=== PATIENT | female | born 1960 | race Caucasian/White ===

== ENCOUNTER → 2020-06-07 10:19 | Outpatient (REF) | payer OTHER, SELFPAY ==
--- NOTE | 2020-06-07 10:30 | CA_ITS ---
Transthoracic Echocardiogram Patient (Last, First, Middle): Veronique Alfonso, Gender: Female Date of : 1960 Age: 59 Procedure Date: 06/07/2020 Procedure Type: Transthoracic Echocardiogram Location: OP Height: 154.94 cm Weight: 79.83 kg BSA: 1.79 m2 Heart Rate: bpm BP: 158 / 90 mmHg Comber Fixer: ZION Mueller MD: Neelam Thornton NP-Susy Nutritional Health Coach: Theo Cope MD Symptoms: I42.9 CARDIOMYOPATHY Study Quality: Good ECG Rhythm: Sinus Conclusions: - 1. Mildly reduced LV systolic function with impaired relaxation filling pattern 2. Mild mitral regurgitation 3. Normal RV systolic pressure 4. No pericardial effusion Findings Left Ventricle Normal left ventricular cavity size. There is normal left ventricular wall thickness. The left ventricular systolic function is mildly decreased. The visually estimated ejection fraction is between 45-50%. Spectral Doppler is indicative of an impaired relaxation filling pattern. E/E prime ratio is between 8 and 15 consistent with indeterminate filling pressures. Right Ventricle Normal right ventricular cavity size and systolic function. Atria The left atrium is likely dilated. There is no evidence of interatrial shunt. The right atrium is normal in size. Aortic Valve Normal aortic valve structure and function. There is no aortic valve stenosis. There is no aortic valve regurgitation. Mitral Valve There is mild anterior and posterior mitral leaflet thickening. There is mild mitral valve regurgitation. There is no mitral valve stenosis. Pulmonic Valve The pulmonic valve was not well visualized. Tricuspid Valve Normal tricuspid valve structure. There is trace tricuspid valve regurgitation. The right ventricular systolic pressure is normal. The right ventricular systolic pressure is 26 mmHg. Normal right atrial pressure. There is no evidence of pulmonary hypertension. Great Vessels All visible segments of the aorta are normal in size. The pulmonary artery was not well visualized. Venous The inferior vena cava is normal in size and collapses greater than 50% with inspiration. Pericardium/Pleural There is no evidence of pericardial effusion. Prior Study Comparison No significant change compared to prior study dated: 05/11/2019. Measurements 2D Linear Measurements RVIDd: 2.83 RVIDd Index: 1.58 IVSd: 1.01 0.6-0.9/0.6-1.0 cm LVIDd: 5.66 3.9-5.3/4.2-5.9 cm LVIDd Index: 3.16 2.4-3.2/2.2-3.1 cm/m2 LVIDs: 4.36 2.0-3.6 cm LVPWd: 1.25 0.7-1.1 cm Ao Root: 2.90 2.1-3.5 cm LA Diam: 4.10 2.7-3.8/3.0-4.0 cm LAIDs Index: 2.29 1.5-2.3 cm/m2 LV Mass: 328.09 67-162/88-224 g LV Mass Index: 183.29 43-95/49-115 g/m2 LVOT Diam: 2.10 3.0+(-)1.3 cm 2D Systolic Function EF 4C: 37.90 >55% EF 2C: 51.30 >55% EF BiP: 45.40 >55% Mitral Valve MV Pk E: 0.58 MV PK A: 0.84 MV Decel Time: 160.00 E/A: 0.70 E'Lateral: 6.64 E'Medial: 4.46 E/E' Med: 12.90 E/E' Lat: 8.70 MR Vol - PW Dopp: 31.20 MR VTI: 1.95 MR ERO: 16.00 MR Alias Juan R: 0.36 MR RAD: 0.60 Aortic Valve AoV Pk Juan R: 1.03 AoV Mn Juan R: 0.84 AoV VTI: 0.20 AoV Pk Grad: 4.00 Aov Mn Grad: 3.00 RAZ Cont.VTI: 2.77 LVOT LVOT Pk Juan R: 0.81 LVOT Mn Juan R: 0.56 LVOT VTI: 0.16 LVOT Pk Grad: 3.00 LVOT Mn Grad: 1.00 LVOT Diam: 2.10 LVOT Area: 3.46 Diastolic Function MV Pk E: 0.58 MV Pk A: 0.84 E/A: 0.70 E'Medial: 4.46 E/E' Med: 12.90 E' Laterial: 6.64 E/E' Lat: 8.70 Tricuspid Valve TR Pk Juan R: 2.38 TR Pk Grad: 23.00 RA Press: 3.00 RVSP: 26.00 Great Vessels Aorta Ao Root-2D: 2.90 2.0-3.7 cm Ao Asc: 3.50 2.1-3.4 cm Ao Arch: 2.80 Updated in Other Vendor System with Status of Final Theo Cope MD electronically signed on 06/07/2020 2:30:31 PM with status of Final
== END ==
LOC: HO.CARD 10:19
PROVIDERS: Visit Provider Nurse Practitioner Family
DX: I42.9 Cardiomyopathy, unspecified (principal)
CPT/HCPCS: 93306

== ENCOUNTER → 2020-06-26 12:23 | Outpatient (BNVA) | payer OTHER, SELFPAY | PROVIDERS: Visit Provider Internal Medicine Cardiovascular Disease | DX: I42.8 Other cardiomyopathies (principal); I11.0 Hypertensive heart disease with heart failure; I50.22 Chronic systolic (congestive) heart failure; Z79.899 Other long term (current) drug therapy | CPT/HCPCS: 93005; 99212 ==

== ENCOUNTER → 2021-05-14 15:07 | Outpatient (BNVA) | payer OTHER, SELFPAY | PROVIDERS: Visit Provider Internal Medicine Cardiovascular Disease | DX: I42.8 Other cardiomyopathies (principal); I11.0 Hypertensive heart disease with heart failure; I50.22 Chronic systolic (congestive) heart failure | CPT/HCPCS: 93005; 99212 ==

== ENCOUNTER 2021-06-05 09:56 | Outpatient (REF) | payer OTHER, SELFPAY ==
[2021-06-05 11:35] LABS: Alanine Aminotransferase 25 U/L (0-31); Albumin Level 4.2 g/dL (3.5-5.0); Alkaline Phosphatase 61 U/L (39-117); Anion Gap 12 (12-20); Aspartate Amino Transferase 21 U/L (5-31); Bilirubin Total 0.4 mg/dL (0.0-1.0); Blood Urea Nitrogen 12 mg/dL (9-16); Carbon Dioxide 29 mmol/L (22-29); Chloride 106 mmol/L (96-108); Cholesterol 186 mg/dL; Estimated Glomerular Filt Rate > 60; Glucose Fasting 152 mg/dL (60-99); HDL Cholesterol 37 mg/dL; LDL Cholesterol Calculated 121 mg/dl; Potassium 4.6 mmol/L (3.3-5.1); Sodium 142 mmol/L (135-145); Total Protein 6.8 g/dL (6.5-8.0); Triglycerides 140 mg/dL
[2021-06-05 11:57] LABS: TSH reflex Free T4 7.39 uIU/mL (0.32-4.0)
[2021-06-05 14:20] LABS: Free T4 (Free Thyroxine) 0.83 ng/dL (0.71-1.85)
== END 2021-06-05 09:57 | disposition home or self-care (01) ==
LOC: HO.LAB 09:56
PROVIDERS: Visit Provider Nurse Practitioner Family
DX: I42.8 Other cardiomyopathies (principal); I10 Essential (primary) hypertension
CPT/HCPCS: 36415; 80053; 80061; 84439; 84443

== ENCOUNTER → 2022-05-20 13:48 | Outpatient (BNVA) | payer OTHER, SELFPAY | PROVIDERS: Visit Provider Internal Medicine Cardiovascular Disease | DX: I42.8 Other cardiomyopathies (principal); I10 Essential (primary) hypertension | CPT/HCPCS: 36415; 80048; 93005; 99212 ==

== ENCOUNTER 2022-05-20 15:02 | Outpatient (REF) | payer OTHER, SELFPAY ==
[2022-05-20 15:57] LABS: Anion Gap 15 (12-20); Blood Urea Nitrogen 16 mg/dL (9-16); Calcium 9.1 mg/dL (8.4-10.2); Carbon Dioxide 28 mmol/L (22-29); Chloride 104 mmol/L (96-108); Estimated Glomerular Filt Rate 59; Glucose Random 172 mg/dL (60-115); Potassium 5.1 mmol/L (3.3-5.1); Sodium 142 mmol/L (135-145)
== END 2022-05-20 15:03 | disposition home or self-care (01) ==
LOC: HO.LAB 15:02
PROVIDERS: Visit Provider Internal Medicine Cardiovascular Disease
DX: Z13.89 Encounter for screening for other disorder (principal)
CPT/HCPCS: 36415; 80048

== ENCOUNTER → 2022-06-06 09:07 | Outpatient (REF) | payer OTHER, SELFPAY ==
--- NOTE | 2022-06-06 09:09 | CA_ITS ---
Transthoracic Echocardiogram Patient (Last, First, Middle): Veronique Alfonso, Gender: Female Date of : 1960 Age: 61 Procedure Date: 06/06/2022 Procedure Type: Transthoracic Echocardiogram Location: OP Height: 157.48 cm Weight: 76.66 kg BSA: 1.78 m2 Heart Rate: 59 bpm BP: 190 / 100 mmHg Head Resident: KENIA Referring MD: Theo Cope MD Chief Fundraising Officer: Theo Cope MD Symptoms: I42.8 - Other cardiomyopathies Study Quality: Adequate/Contrast ECG Rhythm: Bradycardia Conclusions: - 1. Moderately reduced LV systolic function with LVEF of 35-40% 2. Normal cardiac valvular Doppler 3. Normal RV systolic pressure 4. No gross pericardial effusion Findings Procedure Information Contrast agent, definity, is being given per protocol without apparent complications. Left Ventricle Mildly increased left ventricular cavity size. There is normal left ventricular wall thickness. The left ventricular systolic function is moderately decreased. The visually estimated ejection fraction is between 35 40%. There is moderate global hypokinesis. Spectral Doppler is indicative of an impaired relaxation filling pattern. E/E prime ratio is between 8 and 15 consistent with indeterminate filling pressures. Right Ventricle Normal right ventricular cavity size and systolic function. Atria The left atrium is likely dilated. There is no evidence of interatrial shunt. The right atrium is normal in size. Aortic Valve Normal aortic valve structure and function. There is no aortic valve stenosis. There is no aortic valve regurgitation. Mitral Valve Normal mitral valve structure and function. There is mild mitral valve regurgitation. There is no mitral valve stenosis. Pulmonic Valve The pulmonic valve is likely normal. There is mild pulmonic valve regurgitation. Tricuspid Valve Normal tricuspid valve structure. There is trace tricuspid valve regurgitation. The right ventricular systolic pressure is normal. The right ventricular systolic pressure is 16 mmHg. Normal right atrial pressure. There is no evidence of pulmonary hypertension. Great Vessels All visible segments of the aorta are normal in size. The pulmonary artery was not well visualized. Venous The inferior vena cava is normal in size and collapses greater than 50% with inspiration. Pericardium/Pleural There is no evidence of pericardial effusion. Prior Study Comparison Changes noted compared to prior study dated: 06/07/2020. LV systolic function is reduced Measurements 2D Linear Measurements IVSd: 0.96 0.6-0.9/0.6-1.0 cm LVIDd: 5.48 3.9-5.3/4.2-5.9 cm LVIDd Index: 3.08 2.4-3.2/2.2-3.1 cm/m2 LVIDs: 3.95 2.0-3.6 cm LVPWd: 1.13 0.7-1.1 cm LA Diam: 3.50 2.7-3.8/3.0-4.0 cm LAIDs Index: 1.97 1.5-2.3 cm/m2 LV Mass: 279.11 67-162/88-224 g LV Mass Index: 156.80 43-95/49-115 g/m2 LVOT Diam: 1.90 3.0+(-)1.3 cm 2D Systolic Function EF 4C: 38.50 >55% EF 2C: 35.50 >55% EF BiP: 37.90 >55% Mitral Valve MV Pk E: 0.48 MV PK A: 0.63 MV Decel Time: 256.00 E/A: 0.80 E'Lateral: 5.64 E'Medial: 4.32 E/E' Med: 11.20 E/E' Lat: 8.60 PHT: 75.00 MVA PHT: 2.93 Decel Freestone: 1.89 Aortic Valve AoV Pk Juan R: 1.12 AoV Mn Juan R: 0.82 AoV VTI: 0.26 AoV Pk Grad: 5.00 Aov Mn Grad: 3.00 RAZ Cont.VTI: 1.96 LVOT LVOT Pk Juan R: 0.84 LVOT Mn Juan R: 0.57 LVOT VTI: 0.18 LVOT Pk Grad: 3.00 LVOT Mn Grad: 1.00 LVOT Diam: 1.90 LVOT Area: 2.84 Diastolic Function MV Pk E: 0.48 MV Pk A: 0.63 E/A: 0.80 E'Medial: 4.32 E/E' Med: 11.20 E' Laterial: 5.64 E/E' Lat: 8.60 Right Ventricle TAPSE (mm): 15.10 TVS' Juan R: 8.45 Tricuspid Valve TR Pk Juan R: 1.81 TR Pk Grad: 13.00 RA Press: 3.00 RVSP: 16.00 Great Vessels Aorta Sinus of Valsalva: 3.30 2.0-3.[address] [place]: 2.75 1.7-3.4 cm Ao Asc: 3.60 2.1-3.4 cm Pulmonary Valve PV Pk Juan R: 0.98 Peak PV Grad: 4.00 Updated in Other Vendor System with Status of Final Theo Cope MD electronically signed on 06/06/2022 1:51:39 PM with status of Final
== END ==
LOC: HO.CARD 09:07
PROVIDERS: Visit Provider Internal Medicine Cardiovascular Disease
DX: I42.8 Other cardiomyopathies (principal)
CPT/HCPCS: 93306; Q9957

== ENCOUNTER 2022-09-13 10:04 | Emergency (ER) | payer OTHER, SELFPAY ==
--- NOTE | ~2022-09-13 | XR_ITS ---
EXAMINATION: XR THORACIC SPINE CLINICAL INFORMATION: Back pain. COMPARISON: None TECHNIQUE: 3 views of the thoracic spine were obtained. FINDINGS: There is no fracture or bone destruction seen and the vertebral alignment is normal. There is no disc space narrowing. There is no abnormality of the paraspinal soft tissues. XR/XR thoracic spine 3V IMPRESSION: Unremarkable thoracic spine.
--- NOTE | ~2022-09-13 | CT_ITS ---
EXAMINATION: CT ABDOMEN AND PELVIS WITHOUT CONTRAST CLINICAL INFORMATION: Back pain. Question renal colic. COMPARISON: None TECHNIQUE: Multidetector volumetric imaging was performed from the superior aspect of the liver through the pubic symphysis. Sagittal and coronal reformatted images were obtained on the technologist's workstation. This CT examination was performed using dose optimization techniques as appropriate, variously including the following: *Automated exposure control *Adjustment of mA and/or kV according to patient size (this includes techniques or standardized protocols for targeted exams where dose is matched to indication/reason for exam; i.e. extremities or head) *Use of iterative reconstruction technique DLP: 638 mGy-cm FINDINGS: LUNG BASES: The visualized lung bases are unremarkable. LIVER, GALLBLADDER, AND BILIARY TREE: Enlarged fatty liver. No focal hepatic lesion or biliary ductal dilatation is present. The gallbladder is unremarkable with no evidence of radiopaque gallstones, gallbladder wall thickening, or obvious pericholecystic inflammatory changes. PANCREAS: Unremarkable. SPLEEN: Unremarkable. ADRENAL GLANDS: Unremarkable. KIDNEYS AND URETERS: 4 x 7 mm left renal stone. Tiny 1 mm right lower pole renal stone. No hydronephrosis. BLADDER: Unremarkable. GASTROINTESTINAL TRACT: The small and large bowel are unremarkable. The appendix is unremarkable. ABDOMINAL WALL: No significant hernia is appreciated. LYMPH NODES: Normal. VASCULAR: Unremarkable. PELVIC VISCERA: Small partially calcified partially fatty left ovarian lesion probably representing a dermoid. This measures 1 x 2 cm. The uterus and right ovary are unremarkable. OSSEOUS STRUCTURES: Unremarkable. CT/CT abdomen pelvis wo IV con IMPRESSION: 4 x 7 mm left renal stone. Tiny 1 mm right renal stone. No hydronephrosis. Probable small left ovarian dermoid. Fatty liver. Fleischner guidelines were followed.
--- NOTE | ~2022-09-13 | XR_ITS ---
EXAMINATION: XR LUMBOSACRAL SPINE CLINICAL INFORMATION: Back pain. COMPARISON: None TECHNIQUE: Three views of the lumbosacral spine. FINDINGS: The vertebral bodies and posterior elements are normal. The disc spaces are preserved and the vertebral alignment is normal. Mild bilateral facet arthropathy seen at L4-L5 and L5-S1. The paraspinal soft tissues are normal. A 0.7 cm ovoid radiopaque density overlies the left midabdomen. Radiopaque densities overlying the pelvis likely represent phleboliths. XR/XR lumbar spine 2-3V IMPRESSION: 1. No acute lumbar spine abnormality. L4-L5 and L5-S1 mild bilateral facet arthropathy. 2. 0.7 cm ovoid radiopaque density overlying the left midabdomen is nonspecific. This could represent a renal calculus.
[2022-09-13 10:28] VITALS: BP 168/93; PULSE 66; RESP 20; TEMP 36.2; O2SAT 97; BMI 30.7
[2022-09-13 10:46] LABS: MANUAL DIFF FLAG NO
[2022-09-13 10:48] LABS: Basophils Absolute Auto 0.1 X10*3/uL (0.0-0.2); Basophils Percent Auto 1.1 % (0-2); Eosinophils Absolute Auto 0.2 X10*3/uL (0.0-0.4); Eosinophils Percent Auto 2.7 % (0-4); Hematocrit 44.4 % (37.0-47.0); Hemoglobin 14.4 g/dl (12.0-16.0); Imm Gran Abs Auto 0.03 X10*3/uL (0.00-0.03); Imm Gran Pct Auto 0.4 % (0.0-0.4); Lymphocytes Absolute Auto 3.2 X10*3/uL (1.2-4.9); Lymphocytes Percent Auto 42.9 % (20-40); Mean Corpuscular HGB Conc 32.4 g/dl (31.0-35.0); Mean Corpuscular Hemoglobin 29.7 pg (27.0-33.0); Mean Corpuscular Volume 91.5 fL (80.0-98.0); Mean Platelet Volume 11.8 fL (9.4-12.3); Monocytes Absolute Auto 0.5 X10*3/uL (0.1-1.2); Monocytes Percent Auto 6.2 % (2-11); Neutrophils Absolute Auto 3.5 x10*3/uL (2.0-8.3); Neutrophils Percent Auto 46.7 % (45-73); Platelet Count 219 X10*3/uL (160-400); Red Blood Count 4.85 X10*6/uL (4.20-5.50); White Blood Count 7.5 X10*3/uL (4.8-10.8)
[2022-09-13 11:01] LABS: Anion Gap 16 (12-20); Blood Urea Nitrogen 14 mg/dL (9-16); Calcium 9.3 mg/dL (8.4-10.2); Carbon Dioxide 24 mmol/L (22-29); Chloride 107 mmol/L (96-108); Creatinine Clr Calc Pharmacy 68.9; Estimated Glomerular Filt Rate > 60; Glucose Random 134 mg/dL (60-115); Potassium 5.3 mmol/L (3.3-5.1); Sodium 142 mmol/L (135-145)
--- NOTE | 2022-09-13 11:22 | ED.BACK ---
HPI - Back Pain/Injury General Chief Complaint: Back Pain/Injury Stated Complaint: HBP/Back pain Time Seen by Provider: 09/13/22 11:02 Source: patient Mode of arrival: ambulatory Limitations: no limitations History of Present Illness HPI Narrative: 61-year-old female with a history of congestive heart failure, hypertension who presents to the emergency room with complaints of mid back pain for the last 4-5 days with no injury or trauma. No radiation of pain. No numbness, tingling, weakness in the lower legs. No numbness in the groin. No fevers or chills. No urinary symptoms. Patient taking Tylenol home with continued symptoms Patient concerned her blood pressure is elevated today. She did not take any of her morning blood pressure medication Related Data Previous Rx's Medication Instructions Recorded carvedilol 25 mg tablet 25 mg PO BID #60 tabs 05/13/22 blood pressure test kit-large (BPM #1 ea 05/23/22 2 Advanced BP Monitor kit) sacubitril 97 mg-valsartan 103 mg 1 tab PO BID 90 days #180 tabs 07/23/22 tablet cefuroxime axetil 500 mg tablet 500 mg PO BID #14 tabs 09/13/22 cyclobenzaprine 10 mg tablet 10 mg PO Q8H PRN muscle spasm #14 09/13/22 tabs lidocaine 5 % topical patch 1 patch topical DAILY #15 ea 09/13/22 (Lidoderm) naproxen 500 mg tablet 500 mg PO BID PRN pain #30 tabs 09/13/22 Allergies Allergy/AdvReac Type Severity Reaction Status Date / Time No Known Allergies Allergy Verified 06/26/20 12:35 [No Known Allergies*] Review of Systems Review of Systems: Yes all other systems are reviewed and are negative Constitutional: Constitutional: Reports no additional constitutional complaints, Denies body ache(s), Denies chills, Denies fever(s), Denies headache(s) and Denies weakness Eyes: Eyes: Reports no additional eye complaints and Denies change in vision ENT: Reports system reviewed and no additional complaints, except as documented, Denies dizziness, Denies headache(s), Denies nasal congestion, Denies nasal discharge and Denies neck pain Cardiovascular: Cardiovascular: Reports no additional cardiovascular complaints, Denies chest pain, Denies leg edema and Denies dyspnea Respiratory: Respiratory: Reports no additional respiratory complaints, Denies cough and Denies dyspnea Gastrointestinal: Gastrointestinal: Reports no additional gastrointestinal complaints, Denies abdominal pain, Denies diarrhea, Denies nausea and Denies vomiting Genitourinary: Genitourinary: Reports no additional female genitourinary complaints and Denies urinary incontinence Musculoskeletal: Musculoskeletal: Reports no additional musculoskeletal complaints, Reports back pain, Denies arthralgias, Denies joint swelling, Denies neck pain, Denies numbness and Denies tingling Integumentary/Breasts: Skin/Breast: Reports system reviewed and no additional complaints, except as docu and Denies rash Neurologic: Reports system reviewed and no additional complaints, except as documented, Denies Abnormal speech present, Denies dizziness, Denies headache(s), Denies numbness, Denies tingling and Denies weakness PMFSH Past Medical History Attestation statement: The following information was validated with the patient. Source: old records reviewed and nursing notes reviewed Medical History Chronic HFrEF (heart failure with reduced ejection fraction) HTN (hypertension) Nonischemic cardiomyopathy NSVT (nonsustained ventricular tachycardia) Family History Family History Father No problems noted. Mother No problems noted. Social History Social History Alcohol intake: never Smoked in Last 30 Days: No Use of substances other than those prescribed or required for medical reasons: No Advance Directives: No Advance Directives Information Provided: Yes Patient : No Physical Exam Vital Signs: Vital Signs: Last Vital Signs Temp 98.2 F 09/13/22 15:33 Pulse 80 09/13/22 15:33 Resp 16 09/13/22 15:33 BP 158/80 H 09/13/22 15:33 Pulse Ox 98 09/13/22 15:33 O2 Del Method 09/13/22 15:33 BMI result Body Mass Index 30.7 Const: General: cooperative, healthy appearing, comfortable and no acute distress Orientation/consciousness: patient oriented x3 Limitations: no limitations HEENT: Head: Yes normal to inspection Ears: hearing grossly normal bilaterally General nose exam: Normal external nose present Face and sinus: Yes normal facial exam Mouth: Normal oral and palatal mucosa present Throat: Yes posterior oropharynx normal Eyes: General: appearance normal, both eyes and all related structures Pupils: Equal, round and reactive pupils present Neck: Neck: Yes normal visual inspection Chest: Chest palpation & inspection: normal inspection of the chest Resp: Effort & Inspection: normal respiratory effort Auscultation: clear to auscultation bilaterally Cardio: Rate: regular rate Rhythm: regular rhythm Peripheral pulses: Peripheral pulses 2+ throughout GI: Inspection: Yes normal to inspection Palpation (GI): Soft to palpation and nontender Auscultation: normal bowel sounds : General: Yes no CVA tenderness Back/Spine/Pelvis: Other: There is tenderness over the thoracic spine and upper lumbar spine with no step-offs or deformities. Back: no CVA tenderness Thoracic/Lumbar Spine: thoracic and lumbar spine normal to inspection Skin: General skin exam: no rashes or lesions noted Neuro: General: patient oriented x3, moves all extremities, no focal motor deficits and normal sensation to monofilament Cranial nerves: Yes CN's II-XII intact bilaterally, Yes Equal, round and reactive pupils present, Yes Bilaterally intact EOM present, Yes Nystagmus not present, Yes Normal facial strength present and Yes Midline tongue present Cognition (Neuro): normal cognition Speech: No Abnormal speech present Gait exam (Neuro): Normal gait present Motor exam (neuro): 5/5 motor strength present throughout Sensory Exam: Normal double simultaneous stimulation for sensation Extrem: General: Yes normal to inspection Course Course Course Narrative: UA is shows moderate leuk with ?radiopaque fb seen on x-rays.. Will obtain CT to eval for renal colic Reevaluation(s) Reevaluation #1: [id number] is consistent with UTI. Low concern for pyelonephritis. Patient overall nontoxic appearing CT shows kidney stones within the kidney but no obstructive kidney stones. X-rays show arthritic changes. Back pain is likely muscular. Patient will be discharged home with antibiotics, NSAID, muscle relaxant. Recommend follow-up outpatient with primary care doctor. Reviewed worrisome signs and symptoms of when to return to the emergency room. Comfortable plan for discharge home. Medications Administered Discontinued Medications Generic Name Dose Route Start Last Admin Trade Name Freq PRN Reason Stop Dose Admin Ketorolac Tromethamine 30 mg 09/13/22 11:22 09/13/22 11:35 Ketorolac Tromethamine 30 Mg/Ml Vial IM 09/13/22 11:23 30 mg ONCE ONE Administration Medical Decision Making Medical Decision Making [facility] Narrative: 61-year-old female here with atraumatic mid back pain for the last 4-5 days with no other associated symptoms. Patient tenderness over the spine with no step-offs or deformities. No CVA tenderness. Abdomen soft nontender. Lungs are clear. Will obtain labs, UA, x-ray Differential Diagnosis Differential Diagnoses: The differential diagnosis associated with the presentation includes Pyelonephritis, renal colic, UTI Low concern for aortic dissection, epidural abscess, cord compression/cauda equina Lab Data [facility] Lab Attestation statement: I reviewed the patient's lab results. 09/13/22 10:42 09/13/22 10:42 Labs: Lab Results 09/13/22 09/13/22 09/13/22 Range/Units 10:42 10:42 11:31 WBC 7.5 (4.8-10.8) X10*3/uL RBC 4.85 (4.20-5.50) X10*6/uL Hgb 14.4 (12.0-16.0) g/dl Hct 44.4 (37.0-47.0) % MCV 91.5 (80.0-98.0) fL MCH 29.7 (27.0-33.0) pg MCHC 32.4 (31.0-35.0) g/dl RDW 13.0 (11.0-16.0) % Plt Count 219 (160-400) X10*3/uL MPV 11.8 (9.4-12.3) fL Immature Gran % (Auto) 0.4 (0.0-0.4) % Neut % (Auto) 46.7 (45-73) % Lymph % (Auto) 42.9 H (20-40) % [place] % (Auto) 6.2 (2-11) % Eos % (Auto) 2.7 (0-4) % Baso % (Auto) 1.1 (0-2) % Lymph # (Auto) 3.2 (1.2-4.9) X10*3/uL [place] # (Auto) 0.5 (0.1-1.2) X10*3/uL Eos # (Auto) 0.2 (0.0-0.4) X10*3/uL Baso # (Auto) 0.1 (0.0-0.2) X10*3/uL Abs Immat Gran (auto) 0.03 (0.00-0.03) X10*3/uL Absolute Neuts (auto) 3.5 (2.0-8.3) x10*3/uL Absolute Nucleated RBC 0.000 (0.0-0.012) X10*3/uL Nucleated RBC % (auto) 0.0 (0.0-0.2) /100WBC Sodium 142 (135-145) mmol/L Potassium 5.3 H (3.3-5.1) mmol/L Chloride 107 (96-108) mmol/L Carbon Dioxide 24 (22-29) mmol/L Anion Gap 16 (12-20) BUN 14 (9-16) mg/dL Creatinine 0.84 (0.5-1.4) mg/dL Estim Creat Clear Calc 68.9 Estimated GFR > 60 Random Glucose 134 H (60-115) mg/dL Calcium 9.3 (8.4-10.2) mg/dL Total Bilirubin 0.6 (0.0-1.0) mg/dL Direct Bilirubin < 0.2 (0.0-0.5) mg/dL AST 21 (5-31) U/L ALT 21 (0-31) U/L Alkaline Phosphatase 65 (39-117) U/L Total Protein 7.3 (6.5-8.0) g/dL Albumin 4.3 (3.5-5.0) g/dL Urine Color Yellow Urine Appearance Cloudy Urine pH 5.5 (5.0-9.0) Ur Specific Thelma 1.025 (1.005-1.025) Urine Protein Trace (Neg-Trace) mg/dL Urine Glucose (UA) Negative (Negative) mg/dL Urine Ketones Negative (Negative) mg/dL Urine Blood Negative (Negative) Urine Nitrite Negative (Negative) Ur Leukocyte Esterase Moderate (2+) H (Negative) Urine RBC 0-2 (0-2) /HPF Urine WBC 21-50 H (0-5) /HPF Ur Squamous Epith Cells 6-10 (0-2) /HPF Urine Bacteria None Seen (None Seen) Hyaline Casts 0-2 (0-2) /LPF Independent Interpretation I performed an independent interpretation of an: Plain X-Ray and CT Scan Interpretation: I independently reviewed the x-rays and agree with radiologist's report I independently reviewed the CT scan and agree with radiologist's report Radiology Impression Discussion of test interpretation with radiology: I have reviewed the radiologist's reading. Radiologist Impression: FINDINGS: The vertebral bodies and posterior elements are normal. The disc spaces are preserved and the vertebral alignment is normal. Mild bilateral facet arthropathy seen at L4-L5 and L5-S1. The paraspinal soft tissues are normal. A 0.7 cm ovoid radiopaque density overlies the left midabdomen. Radiopaque densities overlying the pelvis likely represent phleboliths. XR/XR lumbar spine 2-3V IMPRESSION: 1.? No acute lumbar spine abnormality. L4-L5 and L5-S1 mild bilateral facet arthropathy. 2.? 0.7 cm ovoid radiopaque density overlying the left midabdomen is nonspecific. This could represent a renal calculus. FINDINGS: LUNG BASES: The visualized lung bases are unremarkable.? LIVER, GALLBLADDER, AND BILIARY TREE: Enlarged fatty liver. No focal hepatic lesion or biliary ductal dilatation is present. The gallbladder is unremarkable with no evidence of radiopaque gallstones, gallbladder wall thickening, or obvious pericholecystic inflammatory changes.? PANCREAS: Unremarkable.? SPLEEN: Unremarkable.? ADRENAL GLANDS: Unremarkable.? KIDNEYS AND URETERS: 4 x 7 mm left renal stone. Tiny 1 mm right lower pole renal stone. No hydronephrosis.? BLADDER: Unremarkable.? GASTROINTESTINAL TRACT: The small and large bowel are unremarkable. The appendix is unremarkable.? ABDOMINAL WALL: No significant hernia is appreciated.? LYMPH NODES: Normal. VASCULAR: Unremarkable. PELVIC VISCERA: Small partially calcified partially fatty left ovarian lesion probably representing a dermoid. This measures 1 x 2 cm. The uterus and right ovary are unremarkable. OSSEOUS STRUCTURES: Unremarkable.? CT/CT abdomen pelvis wo IV con IMPRESSION: 4 x 7 mm left renal stone. Tiny 1 mm right renal stone. No hydronephrosis. Probable small left ovarian dermoid. Fatty liver. ? Fleischner guidelines were followed. Discharge Plan Discharge Clinical Impression: Back pain, UTI (urinary tract infection) Patient Disposition: Home, Self-Care Instructions: Urinary Tract Infection in Women (ED), Acute Low Back Pain (ED), Back Pain (ED) Additional Instructions: Jones radiograf?a muestra artritis en jones [place]. Jones tomograf?a computarizada muestra varios c?lculos renales en el ri??n, krzysztof estos no deber?an estar causando jones dolor. Tienes ghazal infecci?n de orina. Creo que tu dolor de espalda es m?s muscular. Noroton los medicamentos seg?n lo prescrito. Regresar por empeoramiento de los s?ntomas. Prescriptions: New cefuroxime axetil 500 mg tablet 500 mg PO BID Qty: 14 0RF cyclobenzaprine 10 mg tablet 10 mg PO Q8H PRN (Reason: muscle spasm) Qty: 14 0RF naproxen 500 mg tablet 500 mg PO BID PRN (Reason: pain) Qty: 30 0RF lidocaine [Lidoderm] 5 % adhesive patch,medicated 1 patch topical DAILY Qty: 15 0RF Rx Instructions: leave on most painful area for up to 12 hrs No Action carvedilol 25 mg tablet 25 mg PO BID Qty: 60 5RF (DME) blood pressure test kit-large [BPM 2 Advanced BP Monitor] Kit See Rx Instructions .Route Qty: 1 0RF Rx Instructions: As directed sacubitril-valsartan 97-103 mg tablet 1 tab PO BID 90 Days Qty: 180 3RF Referrals: Physician,Unknown J [Primary Care Provider] - Interventions: ED Discharge Assessment Last Done: 09/13/22 16:22 Discharge Date/Time: 09/13/22 16:23 Print Language: Moldovan
[2022-09-13 11:29] VITALS: BP 146/69; PULSE 63; RESP 16; TEMP 36.8; O2SAT 95
[2022-09-13 11:32] LABS: Alanine Aminotransferase 21 U/L (0-31); Albumin Level 4.3 g/dL (3.5-5.0); Alkaline Phosphatase 65 U/L (39-117); Aspartate Amino Transferase 21 U/L (5-31); Bilirubin Direct < 0.2 mg/dL (0.0-0.5); Bilirubin Total 0.6 mg/dL (0.0-1.0); Total Protein 7.3 g/dL (6.5-8.0)
[2022-09-13] MEDS: Ketorolac Tromethamine 30 MG/ML VIAL IM (11:35)
[2022-09-13 11:44] LABS: Appearance Urine Cloudy; Color Urine Yellow; Glucose Urine UA Negative (Negative); Leukocyte Esterase Urine Moderate (2+) (Negative); Nitrite Urine Negative (Negative); PH 5.5 (5.0-9.0); Specific Gravity - Urine 1.025 (1.005-1.025); UMIC TRIGGER UACC YES; Urine Blood Negative (Negative); Urine Ketones Negative (Negative); Urine Protein Trace mg/dL (Neg-Trace)
[2022-09-13 11:52] LABS: Bacteria Urine None Seen (None Seen); Hyaline Casts Urine 0-2 /LPF (0-2); RBC Urine 0-2 /HPF (0-2); UACC Culture Trigger YES; WBC Urine 21-50 /HPF (0-5)
[2022-09-13 15:33] VITALS: BP 158/80; PULSE 80; RESP 16; TEMP 36.8; O2SAT 98
== END 2022-09-13 16:23 | disposition home or self-care (01) ==
PROVIDERS: Nurse Practitioner Family; Emergency Provider Emergency Medicine
DX: M54.6 Pain in thoracic spine (principal); N39.0 Urinary tract infection, site not specified; I11.0 Hypertensive heart disease with heart failure; I50.22 Chronic systolic (congestive) heart failure; Z79.899 Other long term (current) drug therapy
CPT/HCPCS: 36415; 72072; 72100; 74176; 80048; 80076; 81001; 85025; 87086; 96372; 99284; J1885

== ENCOUNTER 2023-07-29 10:44 | Outpatient (AMB) | payer OTHER, SELFPAY ==
[2023-07-29 10:45] VITALS: BP 166/104; PULSE 86; BMI 30.6
--- NOTE | 2023-07-29 10:45 | A.OFFVIS_ITS ---
Intake Vital Signs 07/29/23 10:45 Height 5 ft 2 in Weight 167 lb 8.821 oz BMI 30.6 BP 166/104 H Blood Pressure Location Lt brachial Position Sitting Pulse 86 Intake Visit Reasons: 1 yr f/up Intake Note: 1 year follow-up with ekg feeling good hasn't taken morning meds Hogshead Liner Required: Yes Hogshead Liner Name: Robert henriquez Allergies No Known Allergies [No Known Allergies*] Allergy (Verified 06/26/20 12:35) Medication List - Last Reconciled 07/29/23 by Theo Cope MD blood pressure test kit-large (BPM 2 Advanced BP Monitor kit) As directed carvedilol 25 mg PO BID 90 days sacubitril-valsartan 97-103 mg 1 tab PO BID 90 days HPI HPI Comments History of Present Illness Details Veronique comes after a longer gap that 1 year for follow-up. History was obtained with help of machine former. Echocardiogram done in May of 2022 at show moderate LV systolic dysfunction with LVEF of 35-40%. She is noted to have elevated blood pressure today. She says she did not take her morning med, she only takes Entresto at current time as she was rushing to the visit. However she says she has also been off Coreg for 8 months, not sure of the reason. We have to investigate this. Patient says blood pressure at home are in the 130s range. She has no heart failure symptoms. Denies any worsening shortness of breath, orthopnea, PND. She denies any palpitations, lightheadedness, syncope. No headaches. [facility] Medical History NSVT (nonsustained ventricular tachycardia) HTN (hypertension) Nonischemic cardiomyopathy Chronic HFrEF (heart failure with reduced ejection fraction) Family History Father No problems noted. Mother No problems noted. Social History Alcohol intake: never Review of Systems Const Denies chills, Denies fatigue, Denies fever(s), Denies frequent falls, Denies weakness, Denies weight gain and Denies weight loss ENT Denies dizziness Card Denies chest pain, Denies leg edema, Denies lightheadedness, Denies palpitations, Denies dyspnea, Denies dyspnea on exertion, Denies orthopnea and Denies other (loss of consciousness) Resp Denies cough, Denies dyspnea and Denies dyspnea on exertion GI Denies hematochezia and Denies change in stool character Musc Denies abnormal gait, Denies muscle weakness, Denies numbness, Denies radiating pain into limb and Denies tingling Neuro Denies abnormal gait, Denies dizziness, Denies frequent falls, Denies numbness, Denies tingling and Denies weakness Endo Denies fatigue and Denies palpitations Physical Exam Vital Signs: Last Vital Signs Pulse 86 07/29/23 10:45 BP 166/104 H 07/29/23 10:45 BMI result Body Mass Index 30.6 Const General: cooperative, healthy appearing, comfortable and no acute distress Orientation/consciousness: patient oriented x3 Neck Neck: Yes normal visual inspection and Yes no JVD Resp Effort & Inspection: normal respiratory effort Auscultation: clear to auscultation bilaterally, no crackles, no rales, no rhonchi and no wheezes Cardio Jugular venous distension: no JVD Rate: regular rate Rhythm: regular rhythm Heart sounds: S1 normal heart sound present, S2 normal heart sound present, no gallops, no murmurs and no rubs Peripheral pulses: Peripheral pulses 2+ throughout GI Inspection: Yes normal to inspection Neuro General: patient oriented x3 Extrem General: Yes normal to inspection, No no pedal edema and No calf tenderness Office Procedures EKG Details: EKG shows normal sinus rhythm at 86 beats per minute with atrial enlargement with left ventricular hypertrophy [id number], Complete Assessment & Plan Assessment & Plan (1) Nonischemic cardiomyopathy: Comment: Myocardial perfusion imaging within normal limits. LV ejection fraction improved to 45 to 50%, last echocardiogram April 2020 Code(s): I42.8 - Other cardiomyopathies Plan: Nonischemic cardiomyopathy with moderate LV systolic dysfunction by echocardiogram in May of 2022. She has not had a follow-up for long time for unclear reasons. She also currently of Coreg for unclear reasons. Importance of neurohormonal modulation was discussed with help of machine former. Her blood pressure is currently not controlled as she has not taken her morning med as well as not on Coreg. Will resume Coreg 25 mg b.i.d. and Entresto at current dose. Avoidance of cardiotoxic agents was discussed. No clinical signs of congestive heart failure. Follow-up echocardiogram near future. We reviewed the records and seems like the prescription was sent in March. Unclear wiped patient did not receive it. Will investigate with the pharmacy. Advised to monitor blood pressure at home maintain a log. Low-salt diet was discussed signs or symptoms of heart failure were discussed Follow up in the office in 4 weeks time after echocardiogram. Thank you for allowing me to partake in her care Orders: Orders CA echo transthoracic complete Today I42.8 - Other cardiomyopathies Medications: New carvedilol (Coreg) must administer with a meal/food 25 mg PO Q12H 180 tabs 3RF I42.8 - Other cardiomyopathies Refilled sacubitril-valsartan 97-103 mg 1 tab PO BID 180 tabs 3RF 90 days I42.8 - Other cardiomyopathies Discontinued carvedilol Discontinued Reason: Patient no longer taking 25 mg PO BID 90 days 180 tabs 3RF Coding Level of Care Code Est Pt Level 4 (72479) Diagnoses Nonischemic cardiomyopathy I42.8 CPT Codes EKG - CPT: 04033-[id number], Complete ([id number])
== END 2023-07-29 11:17 | disposition home or self-care (01) ==
PROVIDERS: Visit Provider Internal Medicine Cardiovascular Disease
DX: I42.8 Other cardiomyopathies (principal)
CPT/HCPCS: 93010; 99214

== ENCOUNTER → 2023-07-29 10:44 | Outpatient (BNVA) | payer OTHER, SELFPAY | PROVIDERS: Visit Provider Internal Medicine Cardiovascular Disease | DX: I42.8 Other cardiomyopathies (principal) | CPT/HCPCS: 93005; 99212 ==

== ENCOUNTER → 2023-09-10 10:42 | Outpatient (REF) | payer OTHER, SELFPAY ==
--- NOTE | 2023-09-10 10:46 | CA_ITS ---
Transthoracic Echocardiogram Patient (Last, First, Middle): Veronique Cardenas, Gender: Female Date of : 1960 Age: 62 Procedure Date: 09/10/2023 Procedure Type: Transthoracic Echocardiogram Location: OP Height: 157.48 cm Weight: 75.75 kg BSA: 1.77 m2 Heart Rate: 61 bpm BP: 134 / 82 mmHg Peanut Separator: ADALID Referring MD: Theo Cope MD Cargo Service Agent: Theo Cope MD Symptoms: I42.8 - Other cardiomyopathies Study Quality: Adequate ECG Rhythm: Sinus Conclusions: - 1. Left ventricle is at upper limits of normal in size with [id number] LV systolic dysfunction with impaired relaxation filling pattern 2. Moderately reduced RV systolic function 3. Mild mitral regurgitation 4. Mildly dilated ascending aorta at 3.9 cm 5. Normal RV systolic pressure 6. No gross pericardial effusion Findings Left Ventricle Mildly increased left ventricular cavity size. There is mildly increased left ventricular wall thickness. The left ventricular systolic function is mild to moderately decreased. The visually estimated ejection fraction is between 40-45%. There is no evidence of regional wall motion abnormalities. There is moderate global hypokinesis. Spectral Doppler is indicative of an impaired relaxation filling pattern. E/E prime ratio is between 8 and 15 consistent with indeterminate filling pressures. Peak GLS is -10.8%, which is moderately reduced. Right Ventricle Normal right ventricular cavity size. There is moderately decreased right ventricular systolic function. Atria The left atrium is likely dilated. There is lipomatous hypertrophy of the interatrial septum. Interatrial shunt cannot be excluded. The right atrium is normal in size. Aortic Valve Normal aortic valve structure and function. There is no aortic valve stenosis. There is no aortic valve regurgitation. Mitral Valve There is mild anterior and posterior mitral leaflet thickening. There is mild mitral valve regurgitation. There is no mitral valve stenosis. Pulmonic Valve The pulmonic valve is likely normal. There is trace pulmonic valve regurgitation. Tricuspid Valve Normal tricuspid valve structure. There is trace tricuspid valve regurgitation. The right ventricular systolic pressure is normal. The right ventricular systolic pressure is 18 mmHg. Normal right atrial pressure. There is no evidence of pulmonary hypertension. Great Vessels The pulmonary artery was not well visualized. There is mild dilatation of the ascending aorta measuring 3.90 cm. Venous The inferior vena cava is normal in size and collapses greater than 50% with inspiration. Pericardium/Pleural There is no evidence of pericardial effusion. Prior Study Comparison Changes noted compared to prior study dated: 06/06/2022. LV systolic function has marginally improved. Ascending aorta is mildly dilated Measurements 2D Linear Measurements IVSd: 1.29 0.6-0.9/0.6-1.0 cm LVIDd: 5.40 3.9-5.3/4.2-5.9 cm LVIDd Index: 3.05 2.4-3.2/2.2-3.1 cm/m2 LVIDs: 4.54 2.0-3.6 cm LVPWd: 1.11 0.7-1.1 cm LA Diam: 3.80 2.7-3.8/3.0-4.0 cm LAIDs Index: 2.15 1.5-2.3 cm/m2 LV Mass: 329.77 67-162/88-224 g LV Mass Index: 186.31 43-95/49-115 g/m2 LVOT Diam: 2.10 3.0+(-)1.3 cm 2D Systolic Function EF 4C: 36.20 >55% EF 2C: 49.00 >55% EF BiP: 43.20 >55% Mitral Valve MV Pk E: 0.48 MV PK A: 0.74 MV Decel Time: 185.00 E/A: 0.60 E'Lateral: 6.31 E'Medial: 4.03 E/E' Med: 11.80 E/E' Lat: 7.60 PHT: 54.00 MVA PHT: 4.07 Decel Crowley: 2.57 Aortic Valve AoV Pk Juan R: 1.03 AoV Pk Grad: 4.00 RAZ: 2.65 LVOT LVOT Pk Juan R: 0.82 LVOT Mn Juan R: 0.61 LVOT VTI: 0.18 LVOT Pk Grad: 3.00 LVOT Mn Grad: 2.00 LVOT Diam: 2.10 LVOT Area: 3.46 Diastolic Function MV Pk E: 0.48 MV Pk A: 0.74 E/A: 0.60 E'Medial: 4.03 E/E' Med: 11.80 E' Laterial: 6.31 E/E' Lat: 7.60 Right Ventricle TAPSE (mm): 13.40 TVS' Juan R: 8.59 Tricuspid Valve TR Pk Juan R: 1.93 TR Pk Grad: 15.00 RA Press: 3.00 RVSP: 18.00 Great Vessels Aorta Sinus of Valsalva: 3.20 2.0-3.5 cm Ao Asc: 3.90 2.1-3.4 cm Pulmonary Valve PV Pk Juan R: 1.07 Peak PV Grad: 5.00 Updated in Other Vendor System with Status of Final Theo Cope MD electronically signed on 09/10/2023 1:09:37 PM with status of Final
== END ==
LOC: HO.CARD 10:42
PROVIDERS: Visit Provider Internal Medicine Cardiovascular Disease
DX: I42.8 Other cardiomyopathies (principal)
CPT/HCPCS: 93306; 93356

== ENCOUNTER → 2023-09-10 10:46 | Outpatient (BNV) | payer OTHER, SELFPAY | PROVIDERS: Visit Provider Internal Medicine Cardiovascular Disease | DX: I34.0 Nonrheumatic mitral (valve) insufficiency (principal) | CPT/HCPCS: 93306 ==

== ENCOUNTER 2023-09-19 12:39 | Outpatient (AMB) | payer OTHER, SELFPAY ==
--- NOTE | 2023-09-19 13:07 | MHC.OFFVIS ---
Intake Vital Signs 09/19/23 13:08 Height 5 ft 2 in Weight 169 lb 12.095 oz BMI 31.0 BP 128/70 Blood Pressure Location Lt brachial Position Sitting Pulse 68 Intake Visit Reasons: r/s 4 wks followup s/p echo Synthetic Cloth Binding Cutter Required: Yes Synthetic Cloth Binding Cutter Language: Hot Metal Crane Operator Name: Everardo Bergman [id number] Allergies No Known Allergies [No Known Allergies*] Allergy (Verified 09/19/23 13:14) Medication List - Last Reconciled 09/19/23 by Neelam Thornton NP-C blood pressure test kit-large (BPM 2 Advanced BP Monitor kit) As directed carvedilol (Coreg) 25 mg PO Q12H sacubitril-valsartan 97-103 mg 1 tab PO BID 90 days HPI r/s 4 wks followup s/p echo HPI Details Veronique is a 62-year-old female with past medical history of hypertension, obesity, nonischemic cardiomyopathy, heart failure with reduced EF who presents for follow-up after recent echo. Today she reports she has been feeling very well with no concerning symptoms. She denies chest discomfort at rest or with activity. No shortness of breath, palpitations, lightheadedness, presyncope, syncope, PND, orthopnea or edema. Taking all meds as directed. is present. Certified spinner tender used. [facility] Medical History NSVT (nonsustained ventricular tachycardia) HTN (hypertension) Nonischemic cardiomyopathy Chronic HFrEF (heart failure with reduced ejection fraction) Family History Father No problems noted. Mother No problems noted. Social History Alcohol intake: never Review of Systems Const All systems reviewed & are unremarkable except as noted in HPI and below Denies fatigue Card Denies chest pain, Denies chest pain at rest, Denies chest pain with activity, Denies syncope, Denies rapid heart rate, Denies dyspnea, Denies dyspnea on exertion and Denies orthopnea Resp Denies dyspnea and Denies dyspnea on exertion Musc Denies abnormal gait and Denies muscle weakness Neuro Denies abnormal gait and Denies syncope Endo Denies fatigue Physical Exam Vital Signs: Last Vital Signs BP 128/70 09/19/23 13:08 BMI result Body Mass Index 31.0 Const General: cooperative, healthy appearing, comfortable and no acute distress Orientation/consciousness: patient oriented x3 Neck Neck: Yes normal visual inspection and Yes no JVD Resp Effort & Inspection: normal respiratory effort Auscultation: clear to auscultation bilaterally, no crackles, no rales, no rhonchi and no wheezes Cardio Jugular venous distension: no JVD Rate: regular rate Rhythm: regular rhythm Heart sounds: S1 normal heart sound present, S2 normal heart sound present, no murmurs and no rubs Neuro General: patient oriented x3 Extrem General: Yes normal to inspection, No no pedal edema and No calf tenderness Psych Appearance: grossly normal Mental Status: mental status grossly normal Speech and movement: Normal speech and movement present Assessment & Plan Assessment & Plan (1) Nonischemic cardiomyopathy: Comment: Myocardial perfusion imaging within normal limits. LV ejection fraction improved to 45 to 50%, last echocardiogram April 2020 Code(s): I42.8 - Other cardiomyopathies Plan: History of nonischemic cardiomyopathy, 1st diagnosed 12/2018. EF initially 30-35%. Nuclear stress test done 02/03/2019 showed normal myocardial perfusion imaging. She was managed medically with some improvement in her EF. On last visit it was noted she was not taking her medications as directed. She was restarted on carvedilol and continued on Entresto. An echocardiogram was done 09/10/2023 showing EF 40-45%, moderate decrease in the RV systolic function, mild MR. Today she reports no concerning symptoms. She does not appear fluid overloaded on examination. Will have her continue carvedilol and Entresto for neurohormonal modulation. Signs and symptoms of heart failure reviewed. Will check BMP in near future. Patient informed. Need for strict med compliance, low-salt diet, activity as tolerated reviewed. Cardiology follow-up in 6 months, sooner if needed. (2) Chronic HFrEF (heart failure with reduced ejection fraction): Comment: diagnosed December 2018 with initial LV ejection fraction of 30-35%. Subsequent workup with myocardial perfusion imaging within normal limits Code(s): I50.22 - Chronic systolic (congestive) heart failure Plan: Stable at present time. Recent echo showing EF 40-45%. Not requiring diuretic therapy at this time. (3) HTN (hypertension): Code(s): I10 - Essential (primary) hypertension Plan: Well controlled at present. Continue current med management Plan Time spent on chart review, documentation, interview and assessment Orders: Orders Comprehensive Met. Panel Today I42.8 - Other cardiomyopathies Medications: Changed From carvedilol (Coreg) must administer with a meal/food 25 mg PO Q12H 180 tabs 3RF I42.8 - Other cardiomyopathies To carvedilol (Coreg) must administer with a meal/food 25 mg PO Q12H I42.8 - Other cardiomyopathies Refilled sacubitril-valsartan 97-103 mg 1 tab PO BID 90 days 180 tabs 3RF I42.8 - Other cardiomyopathies Coding Level of Care Code Est Pt Level 4 (58515) Diagnoses Nonischemic cardiomyopathy I42.8 Chronic HFrEF (heart failure with reduced ejection fraction) I50.22 HTN (hypertension) I10 Time Spent (min) 28
[2023-09-19 13:08] VITALS: BP 128/70; PULSE 68; BMI 31.0
== END 2023-09-19 13:34 | disposition home or self-care (01) ==
PROVIDERS: Visit Provider Nurse Practitioner Family
DX: I42.8 Other cardiomyopathies (principal); I50.22 Chronic systolic (congestive) heart failure; I10 Essential (primary) hypertension
CPT/HCPCS: 99214

== ENCOUNTER → 2023-09-19 12:39 | Outpatient (BNVA) | payer OTHER, SELFPAY | PROVIDERS: Visit Provider Nurse Practitioner Family | DX: I42.8 Other cardiomyopathies (principal); I11.0 Hypertensive heart disease with heart failure; I50.22 Chronic systolic (congestive) heart failure | CPT/HCPCS: 99212 ==

== ENCOUNTER 2024-11-18 14:22 | Outpatient (AMB) | payer OTHER, SELFPAY ==
[2024-11-18 14:28] VITALS: BP 134/88; PULSE 70; BMI 29.8
--- NOTE | 2024-11-18 14:28 | MHC.OFFVIS ---
Vital Signs 11/18/24 14:28 Height 5 ft 2 in Weight 163 lb 2.273 oz BMI 29.8 BP 134/88 Blood Pressure Location Lt brachial Position Sitting Pulse 70 Intake Visit Reasons: 6 mth f/up Intake Note: Follow-up with ekg feeling good recently ran out of med's and has not been able to get filled Office Nurse Required: Yes Office Nurse Services: Office Nurse Present Office Nurse Name: rao Diana Heel Padder: Heel Padder Present Accompanied by: Spouse Allergies No Known Allergies [No Known Allergies*] Allergy (Verified 09/19/23 13:14) Medication List - Last Reconciled 11/18/24 by Theo Cope MD blood pressure test kit-large (BPM 2 Advanced BP Monitor kit) As directed carvedilol (Coreg) 25 mg PO Q12H sacubitril-valsartan 97-103 mg (Entresto) 1 tab PO BID HPI Comments Details: Veronique comes after a long gap as she was not able to get her medications. She comes after more than a year for follow-up of her heart failure with reduced ejection fraction/nonischemic cardiomyopathy. She has been getting all her medications currently. She denies any heart symptoms. Does not exercise regularly but denies any worsening shortness of breath, orthopnea, PND, leg edema. No lightheadedness, syncope, prolonged palpitation irregular heartbeat. [facility] Medical History NSVT (nonsustained ventricular tachycardia) HTN (hypertension) Nonischemic cardiomyopathy Chronic HFrEF (heart failure with reduced ejection fraction) Family History Father No problems noted. Mother No problems noted. Social History Alcohol intake: never Review of Systems Const Denies chills, Denies fatigue, Denies fever(s), Denies frequent falls, Denies weakness, Denies weight gain and Denies weight loss ENT Denies dizziness Card Denies chest pain, Denies leg edema, Denies lightheadedness, Denies palpitations, Denies dyspnea, Denies dyspnea on exertion, Denies orthopnea and Denies other (loss of consciousness) Resp Denies cough, Denies dyspnea and Denies dyspnea on exertion GI Denies hematochezia and Denies change in stool character Musc Denies abnormal gait, Denies muscle weakness, Denies numbness, Denies radiating pain into limb and Denies tingling Neuro Denies abnormal gait, Denies dizziness, Denies frequent falls, Denies numbness, Denies tingling and Denies weakness Endo Denies fatigue and Denies palpitations Physical Exam Vital Signs: Last Vital Signs Pulse 70 11/18/24 14:28 BP 134/88 11/18/24 14:28 BMI result Body Mass Index 29.8 Const General: cooperative, healthy appearing, comfortable and no acute distress Orientation/consciousness: patient oriented x3 Neck Neck: Yes normal visual inspection and Yes no JVD Resp Effort & Inspection: normal respiratory effort Auscultation: clear to auscultation bilaterally, no crackles, no rales, no rhonchi and no wheezes Cardio Jugular venous distension: no JVD Rate: regular rate Rhythm: regular rhythm Heart sounds: S1 normal heart sound present, S2 normal heart sound present, no murmurs and no rubs Neuro General: patient oriented x3 Extrem General: Yes normal to inspection, No no pedal edema and No calf tenderness Psych Appearance: grossly normal Mental Status: mental status grossly normal Speech and movement: Normal speech and movement present Office Procedures EKG Details: EKG shows normal sinus rhythm with normal EKG [id number], Complete Assessment & Plan Assessment & Plan (1) Chronic HFrEF (heart failure with reduced ejection fraction): Comment: diagnosed December 2018 with initial LV ejection fraction of 30-35%. Subsequent workup with myocardial perfusion imaging within normal limits Code(s): I50.22 - Chronic systolic (congestive) heart failure Category: Medical Plan: Prior history of heart failure with reduced ejection fraction secondary to nonischemic cardiomyopathy last echocardiogram showing improved LV ejection fraction to 40-45%. She is clinically doing well on current neurohormonal modulation without any signs or symptoms of heart failure with NYHA class 1 symptoms. Continue current neurohormonal modulation with Entresto as well as carvedilol. Importance of medical therapy and follow-up was discussed. Needs basic metabolic profile given her therapy with Entresto. This was discussed with her. Follow-up echocardiogram in near future to assess for LV systolic function. Clinically appears like she is doing very well and importance of medical therapy as well as importance of exercise was discussed with help of grinder set up operator thread tool. She understands agrees. Symptoms of heart failure were discussed. She understands. Follow up in the clinic in 6 months with nurse practitioner in 1 year with me. Thank you for allowing me to partake in his care Orders: Orders CA echo transthoracic complete Today I50.22 - Chronic systolic (congestive) heart failure Medications: Refilled carvedilol (Coreg) must administer with a meal/food 25 mg PO Q12H 180 tabs 1RF I42.8 - Other cardiomyopathies sacubitril-valsartan 97-103 mg (Entresto) 1 tab PO BID 180 tabs 1RF I42.8 - Other cardiomyopathies Coding Level of Care Code Est Pt Level 4 (78485) Complex EM visit Add On G2211 Diagnoses Chronic HFrEF (heart failure with reduced ejection fraction) I50.22 CPT Codes EKG - CPT: 27083-[id number], Complete ([id number])
== END 2024-11-18 15:26 | disposition home or self-care (01) ==
LOC: HO.HCS 14:23
PROVIDERS: Visit Provider Internal Medicine Cardiovascular Disease
DX: I50.22 Chronic systolic (congestive) heart failure (principal)
CPT/HCPCS: 93010; 99214; G2211

== ENCOUNTER → 2024-11-18 14:22 | Outpatient (BNVA) | payer OTHER, SELFPAY | PROVIDERS: Visit Provider Internal Medicine Cardiovascular Disease | DX: I50.22 Chronic systolic (congestive) heart failure (principal); I42.8 Other cardiomyopathies | CPT/HCPCS: 93005; 99212 ==

== ENCOUNTER 2025-06-27 10:09 | Outpatient (AMB) | payer OTHER, SELFPAY ==
[2025-06-27 10:11] VITALS: BP 160/100; PULSE 81; BMI 32.0
--- NOTE | 2025-06-27 10:11 | A.OFFVIS_ITS ---
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 Today she reports she has been feeling well with no concerning symptoms. She denies chest discomfort at rest or with activity. No shortness of breath, palpitations, lightheadedness, presyncope, syncope, PND, orthopnea or edema. Ran out of Yadioo 1 month ago. She has been taking carvedilol as directed. Remains physically active with housework and able to climb stairs without difficulty. is present. Certified diplomatic interpreter used. [facility] Medical History NSVT (nonsustained ventricular tachycardia) HTN (hypertension) Nonischemic cardiomyopathy Chronic HFrEF (heart failure with reduced ejection fraction) Family History Father No problems noted. Mother No problems noted. Social History Alcohol intake: never Review of Systems Const All systems reviewed & are unremarkable except as noted in HPI and below ENT Denies dizziness Card Denies chest pain, Denies chest pain at rest, Denies chest pain with activity, Denies rapid heart rate, Denies pedal edema, Denies edema, Denies leg edema, Denies lightheadedness, Denies palpitations, Denies dyspnea, Denies dyspnea on exertion and Denies orthopnea Resp Denies cough, Denies dyspnea and Denies dyspnea on exertion GI Denies hematochezia and Denies change in stool character Musc Denies abnormal gait, Denies limited range of motion, Denies muscle cramps, Denies muscle weakness, Denies numbness, Denies radiating pain into limb, Denies stiffness and Denies tingling Neuro Denies abnormal gait, Denies dizziness, Denies numbness and Denies tingling Endo Denies palpitations Physical Exam Vital Signs: Last Vital Signs Pulse 81 06/27/25 10:11 BP 160/100 H 06/27/25 10:11 BMI result Body Mass Index 32.0 Const General: cooperative, healthy appearing, comfortable and no acute distress Orientation/consciousness: patient oriented x3 Neck Neck: Yes normal visual inspection and Yes no JVD Resp Effort & Inspection: normal respiratory effort Auscultation: clear to auscultation bilaterally, no crackles, no rales, no rhonchi and no wheezes Cardio Jugular venous distension: no JVD Rate: regular rate Rhythm: regular rhythm Heart sounds: S1 normal heart sound present, S2 normal heart sound present, no murmurs and no rubs Neuro General: patient oriented x3 Extrem General: Yes normal to inspection, No no pedal edema and No calf tenderness Psych Appearance: grossly normal Mental Status: mental status grossly normal Speech and movement: Normal speech and movement present Assessment & Plan Assessment & Plan (1) Nonischemic cardiomyopathy: Comment: Myocardial perfusion imaging within normal limits. LV ejection fraction improved to 45 to 50%, last echocardiogram April 2020 Code(s): I42.8 - Other cardiomyopathies Category: Medical Plan: History of nonischemic cardiomyopathy, 1st diagnosed 12/2018. EF initially 30- 35%. Nuclear stress test done 02/03/2019 showed normal myocardial perfusion imaging. She was managed medically with some improvement in her EF. Last echocardiogram was done 09/10/2023 showing EF 40-45%, moderate decrease in the RV systolic function, mild MR. She continues on carvedilol and Entresto for neurohormonal modulation but tells me she ran out of Entresto a month ago. Will reorder at this time. Will check BMP in 2-3 weeks. Will update echo prior to next visit. Cardiology follow-up in 4 months, sooner if needed. (2) Chronic HFrEF (heart failure with reduced ejection fraction): Comment: diagnosed December 2018 with initial LV ejection fraction of 30-35%. Subsequent workup with myocardial perfusion imaging within normal limits Code(s): I50.22 - Chronic systolic (congestive) heart failure Category: Medical Plan: Stable at present time. Recent echo showing EF 40-45%. Not requiring diuretic therapy at this time. (3) HTN (hypertension): Code(s): I10 - Essential (primary) hypertension Category: Medical Plan: BP goal less than 130/80. Elevated today but she has not taken Entresto in a month. Reordering. Plan I advised the patient that the blood pressure was elevated today, likely due to stopping the Entresto. I explained that Entresto and Carvedilol are prescribed to keep the patient's heart pumping strongly and that stopping the medication can cause the heart to weaken and increase the risk of fluid buildup. I will send a new prescription for Entresto to the pharmacy, and I have instructed the patient to restart it and to continue taking Carvedilol twice daily. I ordered blood work to be done in 2-3 weeks to check kidney function and potassium levels, as these can be affected by Entresto. We will arrange for another heart ultrasound before the next visit. A follow-up appointment is scheduled in four months. 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 - Continue to take your Carvedilol medicine two times a day. - In 2 to 3 weeks, please go to [facility] to have your blood drawn. - We will schedule another ultrasound of your heart to be done before your next visit. - We will see you back in the office in about four months. Patient was informed and verbally consented to the use of an ambient scribe for clinic note documentation during this visit. Visit time spent on chart review, interview, assessment, orders, documentation. Coding Level of Care Code Est Pt Level 4 (29041) Complex visit Add On G2211 Diagnoses Nonischemic cardiomyopathy I42.8 Chronic HFrEF (heart failure with reduced ejection fraction) I50.22 HTN (hypertension) I10 Time Spent (min) 28
== END 2025-06-27 10:32 | disposition home or self-care (01) ==
LOC: HO.HCS 10:09
PROVIDERS: Visit Provider Nurse Practitioner Family
DX: I42.8 Other cardiomyopathies (principal); I50.22 Chronic systolic (congestive) heart failure; I10 Essential (primary) hypertension
CPT/HCPCS: 99214; G2211

== ENCOUNTER → 2025-06-27 10:09 | Outpatient (BNVA) | payer OTHER, SELFPAY | PROVIDERS: Visit Provider Nurse Practitioner Family | DX: I42.8 Other cardiomyopathies (principal); I11.0 Hypertensive heart disease with heart failure; I50.22 Chronic systolic (congestive) heart failure; Z79.899 Other long term (current) drug therapy | CPT/HCPCS: 99212 ==

== ENCOUNTER 2025-07-26 11:19 | Outpatient (REF) | payer OTHER, SELFPAY ==
[2025-07-26 12:46] LABS: Anion Gap 9 (12-20); Blood Urea Nitrogen 16 mg/dL (9-16); Calcium 9.2 mg/dL (8.4-10.2); Carbon Dioxide 29 mmol/L (22-29); Chloride 108 mmol/L (96-108); Estimated Glomerular Filt Rate > 60; Potassium 4.2 mmol/L (3.3-5.1); Sodium 142 mmol/L (135-145)
== END 2025-07-26 11:20 ==
LOC: HO.LAB 11:19
PROVIDERS: Visit Provider Nurse Practitioner Family
DX: I50.22 Chronic systolic (congestive) heart failure (principal); I42.8 Other cardiomyopathies
CPT/HCPCS: 36415; 80048